=== PATIENT | female | born 1980 | race Caucasian/White ===

== ENCOUNTER 2018-03-18 08:02 | Day surgery (SDC) | payer MEDICAID ==
[2018-03-18] MEDS ORDERED: ROCURONIUM 50 MG INJ (09:13)
[2018-03-18] MEDS ORDERED: GLYCOPYRROLATE 0.4 MG INJ (09:13)
[2018-03-18] MEDS ORDERED: PROPOFOL 20 ML (09:13)
[2018-03-18] MEDS ORDERED: NEOSTIGMINE 3 MG/3 ML SYRINGE (09:13)
[2018-03-18] MEDS ORDERED: CEFAZOLIN 1 GM INJ (09:13)
[2018-03-18] MEDS ORDERED: ONDANSETRON 4 MG INJ (09:15)
[2018-03-18] MEDS ORDERED: MIDAZOLAM 1 MG/ML 2 ML INJ (09:15)
[2018-03-18] MEDS ORDERED: FENTAnyl 50 MCG/ML VIAL (09:15)
[2018-03-18] MEDS ORDERED: DEXAMETHASONE 4 MG/ML 1 ML INJ (09:15)
[2018-03-18 09:19] LABS: ADD MAN DIFF? NO
[2018-03-18 09:21] LABS: BASOPHILS % 0.1 % (0.0-2.0); EOSINOPHILS # 0.2 10^3/ul (0.0-0.5); EOSINOPHILS % 2.2 % (0.0-7.0); HEMATOCRIT 42.8 % (37.0-47.0); HEMOGLOBIN 14.2 g/dl (12.0-16.0); LYMPHOCYTES # 3.1 10^3/ul (0.8-2.9); LYMPHOCYTES % 45.6 % (15.0-51.0); MEAN CORPUSCULAR HEMOGLOBIN 29.9 pg (29.0-33.0); MEAN CORPUSCULAR HGB CONC 33.2 g/dl (32.0-37.0); MEAN CORPUSCULAR VOLUME 90.1 fl (82.0-101.0); MONOCYTE # 0.5 10^3/ul (0.3-0.9); MONOCYTES % 7.5 % (0.0-11.0); NEUTROPHILS % 44.5 % (39.0-77.0); PLATELET COUNT 255 10^3/UL (140-415); RED BLOOD COUNT 4.75 10^6/ul (4.20-5.40); RED CELL DISTRIBUTION WIDTH 13.8 % (11.5-14.5)
[2018-03-18 09:21] LABS: WHITE BLOOD COUNT 6.8 10^3/ul (4.8-10.8)
[2018-03-18] MEDS ORDERED: KETOROLAC 30 MG INJ (09:39)
[2018-03-18] MEDS ORDERED: SUGAMMADEX SODIUM 200 MG/2 ML VIAL IV (09:44)
[2018-03-18] MEDS ORDERED: EPHEDrine SULFATE 50 MG/5 ML SYG IV (10:00)
[2018-03-18] MEDS ORDERED: MEPERIDINE 25 MG INJ IV (10:00)
[2018-03-18] MEDS ORDERED: TRIMETHOBENZAMIDE 100 MG/ML VIAL IM (10:00)
[2018-03-18] MEDS ORDERED: MIDAZOLAM 1 MG/ML 2 ML INJ IV (10:00)
[2018-03-18] MEDS ORDERED: IPRATROPIUM (NEB) 0.5 MG/2.5 ML AMP HHN (10:00)
[2018-03-18] MEDS ORDERED: FENTAnyl 50 MCG/ML VIAL IV ×3 (10:00)
[2018-03-18] MEDS ORDERED: hydrALAzine 20 MG INJ IV (10:00)
[2018-03-18] MEDS ORDERED: HYDROmorphONE (0.2 MG/ML) 10ML SYG IV ×2 (10:00)
[2018-03-18] MEDS ORDERED: ALBUTEROL 0.083% (NEB) 2.5 MG/3 ML AMP HHN (10:00)
[2018-03-18] MEDS ORDERED: LABETALOL HCL 20MG INJ IV (10:00)
[2018-03-18] MEDS ORDERED: OXYCODONE/ACETAMINOPHEN (5/325) TAB PO ×2 (10:00)
[2018-03-18] MEDS ORDERED: ONDANSETRON 4 MG INJ IV (10:00)
[2018-03-18] MEDS ORDERED: DIPHENHYDRAMINE 50 MG INJ IV (10:00)
[2018-03-18] MEDS: HYDROmorphONE (0.2 MG/ML) 10ML SYG IV (10:39)
== END 2018-03-18 11:57 | disposition home or self-care (01) ==
LOC: SDS 08:02
DX: Z30.2 Encounter for sterilization (principal)
CPT/HCPCS: 58565; 85025